=== PATIENT | female | born 1985 | race Caucasian/White ===

== ENCOUNTER 2016-11-01 18:29 | Inpatient (IN) | payer OTHER ==
--- NOTE | ~2016-11-01 | PN ---
Unit #: [id number] #: [id number] Patient: MARISELA GOMEZ [id number] [facility] [address] [place] [address] [id number] MR#: [id number] NAME: MARISELA GOMEZ ROOM: P176 Age: 31 Sex: F Admission Date: 11/01/2016 : 1985 Attending Physician: Drew Roberts M.D. Admitting Physician: Drew Roberts M.D. Primary Care Physician: Mellisa Riddle PROGRESS NOTES DATE 11/06/2016 DISCUSSION Ms. Gomez is a 31-year-old white female who was seen today and chart was reviewed and case was discussed with the staff. She has been anxious, withdrawn and rather seclusive to herself. Meanwhile, she has been cooperative with treatment recommendations and appears to be doing better than yesterday and has been complaining of anxiety and depression and (1) to be adjusted. MENTAL STATUS EXAMINATION Young white female who was casually dressed with fair personal hygiene, appears to be in no acute distress or discomfort. She was awake and alert on interaction with intact orientation. Her mood was anxious with congruent affect. She denies any suicidal or homicidal ideations. Also, denies any auditory or visual hallucinations. Her insight and judgement remains slightly impaired. TREATMENT PLAN 1. We will increase her Effexor XR to 225 mg in the morning. We will monitor her response and make further adjustments as needed. 2. We will continue to follow up. Dictated by... Mellisa Zarco/merry TD: 11/07/2016 04:23 JOB #: [id number] Unit #: [id number] #: [id number] Patient: MARISELA GOMEZ PROGRESS NOTES Page 1 of 1 X Drew Roberts MD PROGRESS NOTE
--- NOTE | ~2016-11-01 | PN ---
Unit #: [id number] #: [id number] Patient: MARISELA GOMEZ [id number] [facility] [address] [place] [address] [id number] I MR#: [id number] NAME: MARISELA GOMEZ ROOM: P176 Age: 31 Sex: F Admission Date: 11/01/2016 : 1985 Attending Physician: Drew Roberts M.D. Admitting Physician: Drew Roberts M.D. Primary Care Physician: Mellisa Riddle PROGRESS NOTES DATE 11/05/2016 DISCUSSION Ms. Gomez is a 31-year-old white female with substance abuse and mood disorder who was seen today and chart was reviewed and case was discussed with the staff. She has been showing very poor insight into her situation as she is still detoxing and social media intern has set up a transfer for her to go to half-way chemical dependence rehab program on Monday and she wants to sign out over the weekend and was told that will not feel comfortable and has been encouraged to finish her detox so that she can transition to the rehab level of care. MENTAL STATUS EXAMINATION Young white female who was casually dressed with fair personal hygiene, appears to be in no acute distress or discomfort. She was awake and alert on interaction with intact orientation. Her mood was anxious with congruent affect. She denies any suicidal or homicidal ideations. Her insight and judgement remains slightly impaired. TREATMENT PLAN 1. We will continue her on her current medications and treatment protocol. We will monitor her response and make further adjustments as needed. 2. We will continue to follow up. Dictated by... Mellisa Zarco/merry TD: 11/07/2016 00:16 JOB #: [id number] Unit #: [id number] #: [id number] Patient: MARISELA GOMEZ PROGRESS NOTES Page 1 of 1 X Drew Roberts MD PROGRESS NOTE
--- NOTE | ~2016-11-01 | PA ---
Unit #: [id number] #: [id number] Patient: MARISELA GOMEZ [id number] [facility] [address] [place] [address] [id number] I MR#: [id number] NAME: MARISELA GOMEZ ROOM: P176 Age: 31 Sex: F Admission Date: 11/01/2016 : 1985 Date of Assessment: 11/02/2016 Attending Physician: Drew Roberts M.D. Admitting Physician: Drew Roberts M.D. Primary Care Physician: Prince Farfan M.D. PSYCHIATRIC ASSESSMENT DATE OF SERVICE 11/02/2016. IDENTIFYING DATA Ms. Gomez is a 31-year-old single white female, who is a resident of [place], [place], and is known to us from previous encounter and was self-referred to the hospital on a voluntary basis. CHIEF COMPLAINT "This is a worst detox I've ever had so far." HISTORY OF PRESENT ILLNESS Ms. Gomez is a 31-year-old white female with history of substance abuse and mood disorder, who was brought to the hospital after she stated that she is detoxing and having taken number of substances and reports that she is detoxing off heroin and Xanax and that she came home with all kind of scratches and she had blood in her stool and she woke up Easter Monday and did not know where she was and stated that her mother and glrlih-ht-aem missed her for about 12 to 13 hours and reports that she is unable to work due to her drug use and her history of bipolar disorder and has graduated high school and her [employer] license was lost due to an assault charge and currently reports increasing depression, anxiety, irritability, restlessness, feelings of hopelessness and helplessness, and suicidal ideations, but denies any intent or plan. SUBSTANCE ABUSE HISTORY The patient reports extensive history of substance abuse and dependence including alcohol, cannabis, cocaine, opioids, and amphetamines, and benzodiazepines, and currently she reports that she has been using opioids and cocaine on regular basis. PAST PSYCHIATRIC HISTORY The patient has had [facility] and has been to other facilities as well and has been diagnosed and treated for bipolar disorder and currently has been noncompliant with medications on outpatient treatment and has been decompensating. PAST MEDICAL HISTORY Significant for hypertension. ALLERGIES Haldol and Nicoderm. Unit #: [id number] #: [id number] Patient: MARISELA GOMEZ PERSONAL AND SOCIAL HISTORY A 31-year-old white female, who reports that she is single, unemployed, and lives at home with her mother and gzzyav-vy-eas and has fairly decent social support system. MENTAL STATUS EXAMINATION Young white female who was casually dressed with fair personal hygiene, appears to be in no acute distress or discomfort. She was awake and alert on interaction with intact orientation to time, place, and person. Her mood was anxious and depressed with a congruent affect. Her speech was slow and goal directed. She denies any current suicidal or homicidal ideations, and also denies any auditory or visual hallucinations. Her insight and judgment remain significantly impaired. DIAGNOSTIC IMPRESSION Psychiatric: Opioid dependence, moderate and acute withdrawals; cocaine dependence, moderate; methamphetamine abuse, moderate; bipolar disorder, most recent episode depressed, recurrent, moderate, without psychotic features. Medical: None. Stressors: Moderate psychosocial stressors. TREATMENT PLAN 1. The patient has presented with history of substance abuse and mood disorder, and has been decompensating and will need inpatient hospitalization for detoxification, safety, and stabilization. We will start her back on her home medications. We will adjust the medications and monitor response. 2. Supportive therapy was provided to the patient. 3. Safe, structured, and nourishing environment will be reported. ESTIMATED LENGTH OF STAY 4 to 5 days. ABILITY TO HELP SELF Limited. WILLINGNESS TO HELP SELF The patient appears to be willing to help self. STRENGTHS 1. Communicative. 2. Cooperative. PROBLEMS 1. Chronic dysphoric symptoms. 2. Chronic chemical dependency. 3. Poor social support system. DISCHARGE CRITERIA This will be contingent upon the patient's ability to go through detox without having any significant withdrawal symptoms and her ability to stay safe to herself, particularly after discharge from the hospital. Dictated by... Drew Roberts M.D. Unit #: [id number] #: [id number] Patient: MARISELA GOMEZ IAA/modl TD: 11/02/2016 06:50 JOB #: [id number] PSYCHIATRIC ASSESSMENT Page 1 of 1 X Drew Roberts MD PSYCHIATRIC ASSESSMENT
--- NOTE | ~2016-11-01 | DS ---
Unit #: [id number] #: [id number] Patient: MARISELA GOMEZ [id number] [facility] [address] [place] [address] [id number] MR#: [id number] NAME: MARISELA GOMEZ ROOM: P176 Age: 31 Sex: F Admission Date: 11/01/2016 : 1985 Discharge Date: Attending Physician: Drew Roberts M.D. Primary Care Physician: Prince Farfan M.D. DISCHARGE SUMMARY IDENTIFYING DATA Ms. Gomez is a 31-year-old single white female, who is a resident of [place], [place], and is known to us from previous encounter, and was self-referred to the hospital on a voluntary basis. DISCHARGE DIAGNOSES Psychiatric: Opioid dependence, moderate and acute withdrawals; cocaine dependence, moderate; methamphetamine abuse, moderate; bipolar disorder, most recent episode depressed, recurrent, moderate, without psychotic features. Medical: None. Stressors: Moderate psychosocial stressors. HISTORY OF PRESENT ILLNESS Please see initial psychiatric evaluation for details. PAST PSYCHIATRIC HISTORY Please see initial psychiatric evaluation for details. PAST MEDICAL HISTORY Please see initial psychiatric evaluation for details. HOSPITAL COURSE The patient was admitted to the adult chemical dependency and psychiatric unit at [facility] and was oriented to the hospital environment. Routine p.r.n. medications were initiated, and she was started back on her home medications including her lithium; however, she stated that she does not feel the medication has been helping and wanted to be change to different mood stabilizer and lithium was switched to Geodon with good efficacy and tolerability. Meanwhile, Effexor was also increased and she was seen to be doing good and was able to show a decent therapeutic response and was able to come out of the detox without any complications and was wanting to go home and was willing to continue treatment on an outpatient basis and as such, it was decided that she will be discharged home and will continue treatment on an outpatient basis. DISCHARGE MEDICATIONS Effexor XR 225 mg in the morning for depression and Geodon 60 mg in the morning for depression. DISCHARGE CONDITION Stable. PROGNOSIS Fair. Unit #: [id number] #: [id number] Patient: MARISELA GOMEZ Dictated by... Drew Roberts M.D. IAA/modl TD: 11/07/2016 06:47 JOB #: [id number] DISCHARGE SUMMARY Page 1 of 1 X Drew Roberts MD DISCHARGE SUMMARY
--- NOTE | ~2016-11-01 | PN ---
Unit #: [id number] #: [id number] Patient: MARISELA GOMEZ [id number] [facility] [address] [place] [address] [id number] MR#: [id number] NAME: MARISELA GOMEZ ROOM: P176 Age: 31 Sex: F Admission Date: 11/01/2016 : 1985 Attending Physician: Drew Roberts M.D. Admitting Physician: Drew Roberts M.D. Primary Care Physician: Mellisa Riddle PROGRESS NOTES DATE 11/02/2016 DISCUSSION Ms. Gomez is a 31-year-old white female with substance abuse and mood disorder who was seen today and chart was reviewed and case was discussed with the staff. She has been anxious, withdrawn and rather seclusive to herself. Meanwhile, she has been cooperative with treatment recommendations as she has been taking the medications and tolerating them fairly well with no reported side effects. MENTAL STATUS EXAMINATION Young white female who was casually dressed with fair personal hygiene, appears to be in no acute distress or discomfort. She was awake and alert on interaction with intact orientation. Her mood was anxious and depressed with congruent affect. Her speech was slow and goal-directed. The patient denies any suicidal or homicidal ideations. Her insight and judgement remains slightly impaired. TREATMENT PLAN 1. We will continue her on her current medications and treatment protocol. We will monitor her response to the medication and make further adjustments as needed. 2. We will continue to follow up. Dictated by... Mellisa Zarco/merry TD: 11/03/2016 04:29 JOB #: [id number] Unit #: [id number] #: [id number] Patient: MARISELA GOMEZ PROGRESS NOTES Page 1 of 1 X Drew Roberts MD X PROGRESS NOTE
--- NOTE | ~2016-11-01 | CO ---
Unit #: [id number] #: [id number] Patient: MARISELA SHARMA [id number] [facility] [address] [place] [address] [id number] MR#: [id number] NAME: MARISELA SHARMA ROOM: P176 Age: 31 Sex: F Admission Date: 11/01/2016 : 1985 Attending Physician: Drew Roberts M.D. Primary Care Physician: Prince Farfan M.D. Consultation Date: 11/06/2016 CONSULTATION REPORT ORDERING PROVIDER Dr. Roberts. REASON FOR CONSULT Back pain, increased urination, and ear pain. SUBJECTIVE The patient reports that she has had some lower back pain and increased urinary frequency for about a day. She reports that it is painful to urinate. She has a history of both urinary tract infections and kidney stones. She also reports that she has an infection in her left ear. She went to urgent care prior to [facility] and was given ear drops for that. She now reports pain is also in her right ear. She is wanting to put the drops in both ears. Finally, she has a rash. She presented to urgent care with this rash as well and was given prednisone. She filled the prescription, but never took that and has not been getting it and is being admitted to the hospital. OBJECTIVE The patient has a very mild papular rash on her bilateral arms. Otoscope was not immediately available to look at the patient's ears; however, she had cotton ball in her left ear. She did have some low back pain with CVA tenderness. DIAGNOSTIC STUDIES LABORATORY RESULTS: Urinalysis from admission on the was unremarkable, however, symptoms started after that. PLAN Plan is to get a new urinalysis with culture and sensitivity. Start the patient on Augmentin. She can use her ear drops in both ears and we will do a hydrocortisone cream for her rash. Dictated by... Gail Albarran A.P.R.N. for Mellisa Joya/kayden TD: 11/06/2016 19:49 JOB #: [id number] Unit #: [id number] #: [id number] Patient: MARISELA SHARMA CONSULTATION REPORT Page 1 of 1 X GAIL ALBARRAN APRN CONSULTATION REPORT
--- NOTE | ~2016-11-01 | HP ---
Unit #: [id number] #: [id number] Patient: MARISELA SHARMA [id number] [place] [address] [id number] I MR#: [id number] NAME: MARISELA SHARMA ROOM: P176 Age: 31 Sex: F Admission Date: 11/01/2016 : 1985 Attending Physician: Drew Roberts M.D. Admitting Physician: Drew Roberts M.D. Primary Care Physician: Prince Farfan M.D. HISTORY AND PHYSICAL HISTORY OF PRESENT ILLNESS Marisela is a 31 year old admitted to [facility] because of her continued poly-illicit substance abuse. PAST MEDICAL HISTORY 1. Long history of illicit substance abuse to include heroin and benzodiazepines. 2. History of genital herpes. 3. GERD. 4. Asthma. PAST SURGICAL HISTORY 1. Pelvic lap x2. 2. T and A. 3. x1. 4. Hysterectomy. ALLERGIES Haldol, Zofran, Seroquel, nicotine patch, trazodone. FAMILY HISTORY Medically noncontributory. REVIEW OF SYSTEMS CONSTITUTIONAL: No fever or chills. HEENT: Denies any sore throat, ear pain or runny nose. CARDIOVASCULAR: Denies chest pain, irregular heart rhythm or palpitations. CHEST: Denies shortness of breath or cough. No hemoptysis. GASTROINTESTINAL: Denies nausea, vomiting, diarrhea or chronic constipation. ENDOCRINE: Denies history of increased thirst or urination. No recent significant weight loss or gain. GENITOURINARY: Denies dysuria, frequency, or hematuria. SKIN: Denies any rashes. HEMATOLOGIC: Denies history of increased bleeding or bruising. MUSCULOSKELETAL: Denies any hot, swollen joints. No generalized muscle pain. NEUROLOGIC: Denies problems with vision or speech. No frequent, severe headaches. No numbness, tingling or weakness in any extremities. Denies loss of bladder or bowel control. CURRENT MEDICATIONS 1. Detox protocol. Unit #: [id number] #: [id number] Patient: MARISELA SHARMA 2. Effexor XR 150 mg daily. 3. Trazodone 150 mg q.h.s. 4. [place] 300 mg q.h.s. 5. Ibuprofen 800 mg t.i.d. 6. Desyrel 100 mg q.h.s. p.r.n. PHYSICAL EXAMINATION GENERAL: Alert, morbidly obese, in no apparent distress. VITAL SIGNS: Blood pressure 120/84, heart rate 80, respirations 16, temperature 98.6. WEIGHT: 228. HEIGHT: 5 feet 4 inches. SKIN: Warm and dry without rash or lesion. HEENT: Normocephalic. TMs not viewed. Oral and nasal passages clear. Conjunctivae clear. PERRLA. EOMs intact. NECK: Supple without lymphadenopathy or thyromegaly. HEART: Regular rate and rhythm without murmur. LUNGS: Clear. ABDOMEN: Soft, nontender. : Not done. EXTREMITIES: No evidence of cyanosis, clubbing or edema. Moves all without focal deficit. NEUROLOGICAL: Grossly within normal limits. Cranial Nerves: II: Visual zhang are intact. III, IV AND : Extraocular movements are intact. Pupils are equal, round and reactive to light. V: Facial sensation is grossly normal. VII: Facial movements and expression are normal. VIII: Auditory acuity grossly intact. IX, X: Uvula is midline. Phonation is normal. XI: Patient shrugs shoulders and turns head normally. XII: Tongue protrudes in the midline. Sensory and Motor Function: Sensory and motor sensation is grossly normal. Motor: moves all extremities well. Coordination: Gait is normal. Deep Tendon Reflexes: Intact. IMPRESSION Psychiatric admission. RECOMMENDATIONS PSYCHIATRIC: Per psychiatrist. MEDICAL: See no contraindications to participate in facility's activities. MEDICAL PROGNOSIS Good. MEDICAL CONDITION Stable. Dictated by... Carmen Trammell P.A.-C. for Mellisa Joya/robb TD: 11/02/2016 18:32 Unit #: [id number] #: [id number] Patient: MARISELA SHARMA JOB #: [id number] HISTORY AND PHYSICAL Page 1 of 1 X Carmen Trammell HISTORY AND PHYSICAL
--- NOTE | ~2016-11-01 | PN ---
Unit #: [id number] #: [id number] Patient: MARISELA GOMEZ [id number] [facility] [address] [place] [address] [id number] MR#: [id number] NAME: MARISELA GOMEZ ROOM: P176 Age: 31 Sex: F Admission Date: 11/01/2016 : 1985 Attending Physician: Drew Roberts M.D. Admitting Physician: Drew Roberts M.D. Primary Care Physician: Mellisa Riddle PROGRESS NOTES DATE 11/03/2016 DISCUSSION Ms. Gomez is a 31-year-old white female who was seen today and chart was reviewed and case was discussed with the staff. She has been anxious, withdrawn though has not shown any agitation, irritability or behavioral problems and has been cooperative with treatment recommendations as she has been taking medications and tolerating them fairly well with no reported side effects. MENTAL STATUS EXAMINATION Young white female who was casually dressed with fair personal hygiene and appears to be in no acute distress or discomfort. She was awake and alert on interaction with intact orientation. Her mood was anxious and depressed with congruent affect. She denies any suicidal or homicidal ideations. Her insight and judgement remains slightly impaired. TREATMENT PLAN 1. Will continue on current medications and treatment protocol. Will monitor her response to the medications and make further adjustments as needed. 2. Will continue to follow up. Dictated by... Mellisa Zarco/robb TD: 11/03/2016 15:49 JOB #: [id number] Unit #: [id number] #: [id number] Patient: MARISELA GOMEZ PROGRESS NOTES Page 1 of 1 X Drew Roberts MD X PROGRESS NOTE
--- NOTE | ~2016-11-01 | PN ---
Unit #: [id number] #: [id number] Patient: MARISELA GOMEZ [id number] [facility] [address] [place] [address] [id number] MR#: [id number] NAME: MARISELA GOMEZ ROOM: P176 Age: 31 Sex: F Admission Date: 11/01/2016 : 1985 Attending Physician: Drew Roberts M.D. Admitting Physician: Drew Roberts M.D. Primary Care Physician: Mellisa Riddle PROGRESS NOTES DATE OF SERVICE: 11/04/2016 SUBJECTIVE Ms. Gomez is a 31-year-old white female, who was seen today and chart was reviewed and the case was discussed with the staff. She has been anxious, withdrawn, and reports not feeling good and stated that she was binging on alcohol as well in addition to being on opioids and therefore has been having complicated withdrawal and reports her whole body is hurting and she has not been able to feel rested and comfortable. She wants me to take her off lithium and stating that it has not been helping her and she would like to be rather on different mood stabilizer. MENTAL STATUS EXAMINATION Young white female, who was casually dressed with fair personal hygiene, appears to be in no acute distress or discomfort. She was awake and alert on interaction with intact orientation. Her mood was anxious and depressed with a congruent affect. Her speech was slow and goal directed. She denies any suicidal or homicidal ideations. Her insight and judgment remain slightly impaired. TREATMENT PLAN 1. We will continue on her current medications and treatment protocol. We will monitor her response to medications and make further adjustments as needed. 2. We will continue to follow up. Dictated by... Drew Roberts M.D. IAA/modl TD: 11/04/2016 07:45 JOB #: [id number] Unit #: [id number] #: [id number] Patient: MARISELA GOMEZ PROGRESS NOTES Page 1 of 1 X Drew Roberts A MD X PROGRESS NOTE
[2016-11-02 09:59] LABS: URINE APPEARANCE CLEAR; URINE BILIRUBIN NEG (NEG); URINE BLOOD NEG (NEG); URINE COLOR YELLOW; URINE GLUCOSE NEG (NEG); URINE KETONE NEG (NEG); URINE LEUKOCYTE ESTERASE TRACE (NEG); URINE NITRATE NEG (NEG); URINE PH 5.5 (5-8); URINE PROTEIN NEG (NEG); URINE SPECIFIC GRAVITY 1.013 (1.003-1.035); URINE UROBILINOGEN 0.2 MG/DL (NEG)
[2016-11-02 10:02] LABS: URINE BACTERIA AUWI 1+ (NEGATIVE); URINE SQUAMOUS EPITHELIAL CELL OCC /[HPF]
[2016-11-02 10:15] LABS: URBCS1 AUWI NEG /[HPF] (0-2); UWBCS1 AUWI 0-2 (0-5)
[2016-11-02 10:37] LABS: AMPHETAMINE POS (NEG); BARBITURATES NEG (NEG); BENZODIAZEPINES POS (NEG); COCAINE POS (NEG); MARIJUANA POS (NEG); OPIATES NEG (NEG); TRICYCLIC ANTIDEPRESSANTS POS (NEG); U METHADONE NEG (NEG)
[2016-11-02 12:37] LABS: BASOPHIL% 0.7 % (0-2.5); EOSINOPHIL# 0.2 X10e3 (0-0.7); EOSINOPHIL% 3.2 % (0.0-7.0); HEMATOCRIT 39.3 % (35.0-45.0); LYMPHOCYTE# 3.3 X10e3 (1.0-3.5); LYMPHOCYTE% 64.8 % (17.0-45.0); MEAN CELL VOLUME 90.1 FL (83-96); MEAN CORPUSCULAR HEMOGLOBIN 29.8 PG (28-34); MEAN PLATELET VOLUME 8.5 FL (6.5-11.5); MONOCYTE# 0.4 X10e3 (0-1.0); MONOCYTE% 7.3 % (3.0-12.0); NEUTROPHIL# 1.2 X10e3 (1.5-7.1); PLATELET COUNT 270 X10e3 (140-420); RED BLOOD COUNT 4.36 X10e (3.90-5.30); RED CELL DISTRIBUTION WIDTH 13.9 % (11.0-15.5); WHITE BLOOD COUNT 5.1 X10e3 (4.0-10.5)
[2016-11-02 12:46] LABS: DIFF IND YES
[2016-11-02 13:08] LABS: PLATELET ESTIMATE NORMAL (NORMAL); RBC NORMAL YES
[2016-11-02 13:10] LABS: ALBUMIN SERUM 3.4 g/dL (3.5-5.0); BILIRUBIN,TOTAL 0.7 mg/dL (0.2-2.0); CALCIUM SERUM 9.1 mg/dL (8.4-10.2); GLOM FILT RATE Estimated 76.1 mL/min (>60); POTASSIUM 3.7 mmol/L (3.5-5.1)
[2016-11-07 12:40] LABS: URINE APPEARANCE CLOUDY; URINE BILIRUBIN NEG (NEG); URINE BLOOD NEG (NEG); URINE COLOR YELLOW; URINE GLUCOSE NEG (NEG); URINE KETONE NEG (NEG); URINE LEUKOCYTE ESTERASE NEG (NEG); URINE NITRATE NEG (NEG); URINE PROTEIN NEG (NEG); URINE SPECIFIC GRAVITY 1.007 (1.003-1.035); URINE UROBILINOGEN 0.2 MG/DL (NEG)
[2016-11-07 12:49] LABS: CULTURE INDICATED? NO
== END 2016-11-07 08:45 | DRG 897 ==
LOC: P1E 18:29
PROVIDERS: Psychiatry & Neurology Psychiatry
PROC: HZ2ZZZZ Detoxification Services for Substance Abuse Treatment (ICD-10-PCS; principal; 2016-11-01)
DX: F11.23 Opioid dependence with withdrawal (principal); F14.20 Cocaine dependence, uncomplicated; F31.32 Bipolar disorder, current episode depressed, moderate; F15.10 Other stimulant abuse, uncomplicated; K21.9 Gastro-esophageal reflux disease without esophagitis; J45.909 Unspecified asthma, uncomplicated; Z90.710 Acquired absence of both cervix and uterus; Z88.8 Allergy status to other drugs, medicaments and biological substances; H92.03 Otalgia, bilateral; M54.9 Dorsalgia, unspecified; R35.0 Frequency of micturition
CPT/HCPCS: 80053; 80178; 80307; 81003; 84703; 85025; 86592

== ENCOUNTER 2017-02-23 14:47 | Inpatient (IN) | payer OTHER ==
[~2017-02-23] VITALS: Ht 162.6 cm; Wt 90.7 kg
--- NOTE | ~2017-02-23 | PN ---
Unit #: [id number] #: [id number] Patient: MARISELA GOMEZ [id number] [facility] [address] [place] [address] [id number] MR#: [id number] NAME: MARISELA GOMEZ ROOM: P173 Age: 31 Sex: F Admission Date: 02/23/2017 : 1985 Attending Physician: Drew Roberts M.D. Admitting Physician: Drew Roberts M.D. Primary Care Physician: Mellisa Riddle PROGRESS NOTES DATE 02/26/2017 DISCUSSION Ms. Gomez is a 31-year-old white female who was seen today and chart was reviewed and case was discussed with the staff. She has been anxious, withdrawn and rather seclusive to herself. Meanwhile, she has been cooperative with treatment recommendations as she has been taking the medications and tolerating them fairly well with no reported side effects. MENTAL STATUS EXAMINATION Young white female who was casually dressed with fair personal hygiene, appears to be in no acute distress or discomfort. She was awake and alert on interaction with intact orientation. Her mood was anxious with congruent affect. Her speech was slow and goal-directed. She denies any suicidal or homicidal ideations. Her insight and judgement remains slightly impaired. TREATMENT PLAN 1. We will continue her on her current medications and treatment protocol. We will adjust her medication and monitor response. 2. Supportive therapy was provided to the patient. 3. We will continue to follow up. Dictated by... Mellisa Zarco/merry TD: 02/27/2017 04:05 JOB #: [id number] Unit #: [id number] #: [id number] Patient: MARISELA GOMEZ PROGRESS NOTES Page 1 of 1 X Drew Roberts MD X PROGRESS NOTE
--- NOTE | ~2017-02-23 | DS ---
Unit #: [id number] #: [id number] Patient: MARISELA GOMEZ [id number] [facility] [place] [address] [id number] I MR#: [id number] NAME: MARISELA GOMEZ ROOM: P173 Age: 31 Sex: F Admission Date: 02/23/2017 : 1985 Discharge Date: 02/28/2017 Attending Physician: Drew Roberts M.D. Primary Care Physician: Prince Farfan M.D. DISCHARGE SUMMARY IDENTIFYING DATA Ms. Gomez is a 31-year-old single white female, resident of [place], [place], as is well known to us from previous multiple encounters, self-referred to the hospital on a voluntary basis. HISTORY OF PRESENT ILLNESS Please see initial psychiatric evaluation for details. PAST PSYCHIATRIC HISTORY Please see initial psychiatric evaluation for details. PAST MEDICAL HISTORY Please see initial psychiatric evaluation for details. HOSPITAL COURSE The patient [facility] and was oriented to the hospital environment. Routine p.r.n. medications were initiated, and she was started back on her home medications, and detox protocol was initiated and she was closely monitored. The patient was taking the medications regularly and was tolerating them fairly well and was able to come out of the detox without any complications and was willing to continue her treatment on outpatient basis and as such it was decided that she will be discharged home and will continue treatment on an outpatient basis. The patient was wanting to go to prison rehab level of care and social worker school was able to get her accepted at [facility] and as such it was decided that she will be transferred to that facility. DISCHARGE DIAGNOSES Psychiatric: [place] I Opiate dependence moderate in acute withdrawal. Benzodiazepine dependence, moderate, in acute withdrawal. Bipolar disorder, most recent episode depressed, frequent, recurrent, without psychotic features. [place] II [place] III Hypertension. Asthma. [place] IV Mild Psychosocial stressors. [place] V DISCHARGE MEDICATIONS 1. Geodon 120 mg in the evening for bipolar Unit #: [id number] #: [id number] Patient: MARISELA GOMEZ 2. Effexor XR 150 mg twice a day for depression CONDITION AT DISCHARGE Stable. PROGNOSIS Fair. Dictated by... Mellisa Zarco/obey TD: 03/01/2017 08:42 JOB #: [id number] DISCHARGE SUMMARY Page 1 of 1 X Drew Roberts MD DISCHARGE SUMMARY
--- NOTE | ~2017-02-23 | PA ---
Unit #: [id number] #: [id number] Patient: MARISELA SHARMA [id number] [facility] [address] [place] [address] [id number] MR#: [id number] NAME: MARISELA SHARMA ROOM: P173 Age: 31 Sex: F Admission Date: 02/23/2017 : 1985 Date of Assessment: Attending Physician: Drew Roberts M.D. Admitting Physician: Drew Roberts M.D. Primary Care Physician: Prince Farfan M.D. PSYCHIATRIC ASSESSMENT DATE OF SERVICE 02/24/2017. IDENTIFYING DATA Ms. Soria is a 31-year-old single white female, who is a resident of [place], [place], and is very well known to me from previous encounter and was self-referred to the hospital on a voluntary basis. CHIEF COMPLAINT "I'm seeking treatment for my drug abuse." HISTORY OF PRESENT ILLNESS Ms. Soria is a 31-year-old white female with history of substance abuse and mood disorder, who was self-referred to the hospital reporting that she was recommended to seek treatment following arrest for substance abuse and she has been using Xanax and Percocet and that she has been using benzos for a while, even when she was incarcerated and she has had several seizures from withdrawals as recent as two days ago, and reports that she has noticed increasing depression after she lost custody of her son and does endorse increasing depression, anxiety, irritability, restlessness, feelings of hopelessness and helplessness, but denies any current suicidal ideations, intent, or plan. SUBSTANCE ABUSE HISTORY The patient reports extensive history of substance abuse and dependence including cannabis, cocaine, opioids, amphetamines, and benzodiazepines, and currently, opioids and benzodiazepines have been her drug of choice as she reports that she has been using a gram of IV heroin on a daily basis and has been using 5 to 6 Xanax on a daily basis and has been having withdrawal seizures. PAST PSYCHIATRIC HISTORY The patient has had a [facility] along with outpatient treatment. Review of the medical records indicate currently she is not active in any treatment program, is not seeing a psychiatrist, and is not taking any psychotropic medications. However, review of the medical records indicate that she has been diagnosed with bipolar disorder and supposed to be on Effexor and Geodon. PAST MEDICAL HISTORY Hypertension and asthma. Unit #: [id number] #: [id number] Patient: MARISELA SHARMA. PERSONAL AND SOCIAL HISTORY A 31-year-old white female, who reports that she is single, unemployed, and has been living at home with her mother and cousin and has fairly decent social support system. MENTAL STATUS EXAMINATION Young white female, who was casually dressed with a fair personal hygiene, appears to be in no acute distress or discomfort. She was awake and alert on interaction with intact orientation. Her mood was anxious and depressed with a congruent affect. Her speech was slow and restricted in content. Her thought processes were disorganized with some looseness of associations. She denies any suicidal or homicidal ideations and also denies any auditory or visual hallucinations. Her insight and judgment remain significantly impaired. DIAGNOSTIC IMPRESSION Psychiatric: Opioid dependence, moderate, in acute withdrawals; benzodiazepine dependence, moderate, in acute withdrawals; bipolar disorder, most recent episode depressed, recurrent, moderate, without psychotic features. Medical: Hypertension and asthma. Stressors: Moderate psychosocial stressors. TREATMENT PLAN 1. The patient has presented with a history of substance abuse and mood disorder and has been decompensating and will need inpatient hospitalization for detoxification, safety, and stabilization. We will start her back on her home medications and we will adjust the medications and monitor response. 2. Supportive therapy was provided to the patient. 3. Safe, structured, and nourishing environment will be provided. ESTIMATED LENGTH OF STAY 5 to 7 days. ABILITY TO HELP SELF Limited. WILLINGNESS TO HELP SELF The patient appears to be willing to help self. STRENGTHS 1. Communicative. 2. Cooperative. PROBLEMS 1. Chronic dysphoric symptoms. 2. Poor social support system. DISCHARGE CRITERIA This will be contingent upon the patient's ability to show resolution of her depression and anxiety as well as her ability to stay safe to herself, particularly after discharge from the hospital. Dictated by... Unit #: [id number] #: [id number] Patient: MARISELA SHARMA Mellisa Zarco/kayden TD: 02/24/2017 16:34 JOB #: [id number] PSYCHIATRIC ASSESSMENT Page 1 of 1 X Drew Roberts MD PSYCHIATRIC ASSESSMENT
--- NOTE | ~2017-02-23 | PN ---
Unit #: [id number] #: [id number] Patient: MARISELA GOMEZ [id number] [facility] [address] [place] [address] [id number] MR#: [id number] NAME: MARISELA GOMEZ ROOM: P173 Age: 31 Sex: F Admission Date: 02/23/2017 : 1985 Attending Physician: Drew Roberts M.D. Admitting Physician: Drew Roberts M.D. Primary Care Physician: Mellisa Riddle PROGRESS NOTES DATE 02/25/2017 DISCUSSION Ms. Gomez is a 31-year-old white female who was seen today and chart was reviewed and case was discussed with the staff. She has been anxious, withdrawn and rather seclusive to herself. Meanwhile, she has been cooperative with treatment recommendations and has been taking medications and tolerating them fairly well with no reported side effects. MENTAL STATUS EXAMINATION Young white female who was casually dressed with fair personal hygiene and appears to be in no acute distress or discomfort. She was awake and alert with intact orientation. Her mood was anxious with congruent affect. She denies any suicidal or homicidal ideation. Her insight and judgement remains slightly impaired. TREATMENT PLAN 1. Will continue her on current medications and treatment protocol. Will monitor her response to the medications and make further adjustments as needed. 2. Will continue to follow up. Dictated by... Drew Roberts M.D. IAA/robb TD: 02/25/2017 17:49 JOB #: [id number] Unit #: [id number] #: [id number] Patient: MARISELA GOMEZ PROGRESS NOTES Page 1 of 1 X Drew Roberts MD X PROGRESS NOTE
--- NOTE | ~2017-02-23 | PN ---
Unit #: [id number] #: [id number] Patient: MARISELA GOMEZ [id number] [facility] [address] [place] [address] [id number] MR#: [id number] NAME: MARISELA GOMEZ ROOM: P173 Age: 31 Sex: F Admission Date: 02/23/2017 : 1985 Attending Physician: Drew Roberts M.D. Admitting Physician: Drew Roberts M.D. Primary Care Physician: Mellisa Riddle PROGRESS NOTES DATE 02/27/2017 DISCUSSION Ms. Gomez is a 31-year-old white female who was seen today and chart was reviewed and case was discussed with the staff. She has been anxious, withdrawn and rather seclusive to herself. Meanwhile, she has been cooperative with treatment recommendations as she has been taking the medications and tolerating them fairly well with no reported side effects. MENTAL STATUS EXAMINATION Young white female who was casually dressed with fair personal hygiene, appears to be in no acute distress or discomfort. She was awake and alert on interaction with intact orientation. Her mood was anxious with congruent affect. She denies any suicidal or homicidal ideations. Her insight and judgement remains slightly impaired. TREATMENT PLAN 1. We will continue her on her current medications and treatment protocol. We will monitor her response to the medication and make further adjustments as needed. 2. We will continue to follow up. Dictated by... Mellisa Zarco/merry TD: 02/28/2017 02:53 JOB #: [id number] Unit #: [id number] #: [id number] Patient: MARISELA GOMEZ PROGRESS NOTES Page 1 of 1 X Drew Roberts MD X PROGRESS NOTE
--- NOTE | ~2017-02-23 | HP ---
Unit #: [id number] #: [id number] Patient: MARISELA SAHRMA [id number] [place] [address] [id number] MR#: [id number] NAME: MARISELA SHARMA ROOM: P173 Age: 31 Sex: F Admission Date: 02/23/2017 : 1985 Attending Physician: Drew Roberts M.D. Admitting Physician: Drew Roberts M.D. Primary Care Physician: Prince Farfan M.D. HISTORY AND PHYSICAL HISTORY OF PRESENT ILLNESS Marisela is a 31 year old admitted to [facility] because of her continued poly-illicit substance abuse. She has had numerous admissions to this facility. PAST MEDICAL HISTORY 1. Long history of illicit substance abuse to include heroin and benzodiazepines. 2. History of genital herpes. 3. GERD. 4. Asthma. PAST SURGICAL HISTORY 1. Pelvic lap x2. 2. T and A. 3. x1. 4. Hysterectomy. ALLERGIES Haldol, Zofran, Seroquel, nicotine patch, trazodone. FAMILY HISTORY Medically noncontributory. REVIEW OF SYSTEMS CONSTITUTIONAL: No fever or chills. HEENT: Denies any sore throat, ear pain or runny nose. CARDIOVASCULAR: Denies chest pain, irregular heart rhythm or palpitations. CHEST: Denies shortness of breath or cough. No hemoptysis. GASTROINTESTINAL: Denies nausea, vomiting, diarrhea or chronic constipation. ENDOCRINE: Denies history of increased thirst or urination. No recent significant weight loss or gain. GENITOURINARY: Denies dysuria, frequency, or hematuria. SKIN: Denies any rashes. HEMATOLOGIC: Denies history of increased bleeding or bruising. MUSCULOSKELETAL: Denies any hot, swollen joints. No generalized muscle pain. NEUROLOGIC: Denies problems with vision or speech. No frequent, severe headaches. No numbness, tingling or weakness in any extremities. Denies loss of bladder or bowel control. CURRENT MEDICATIONS Unit #: [id number] #: [id number] Patient: MARISELA SHARMA 1. Detox protocol. 2. Geodon 120 mg q.p.m. 3. Neurontin 400 mg t.i.d. 4. Effexor XR 225 mg daily. PHYSICAL EXAMINATION GENERAL: Alert, obese, in no apparent distress. VITAL SIGNS: Blood pressure 128/86, heart rate 84, respirations 16, temperature 98.6. WEIGHT: 200. HEIGHT: 5 feet 4 inches. SKIN: Warm and dry without rash or lesion. HEENT: Normocephalic. TMs not viewed. Oral and nasal passages clear. Conjunctivae clear. PERRLA. EOMs intact. NECK: Supple without lymphadenopathy or thyromegaly. HEART: Regular rate and rhythm without murmur. LUNGS: Clear. ABDOMEN: Soft, nontender. : Not done. EXTREMITIES: No evidence of cyanosis, clubbing or edema. Moves all without focal deficit. NEUROLOGICAL: Grossly within normal limits. Cranial Nerves: II: Visual zhang are intact. III, IV AND : Extraocular movements are intact. Pupils are equal, round and reactive to light. V: Facial sensation is grossly normal. VII: Facial movements and expression are normal. VIII: Auditory acuity grossly intact. IX, X: Uvula is midline. Phonation is normal. XI: Patient shrugs shoulders and turns head normally. XII: Tongue protrudes in the midline. Sensory and Motor Function: Sensory and motor sensation is grossly normal. Motor: moves all extremities well. Coordination: Gait is normal. Deep Tendon Reflexes: Intact. IMPRESSION Psychiatric admission. RECOMMENDATIONS PSYCHIATRIC: Per psychiatrist. MEDICAL: See no contraindication to participate in facility's activities. MEDICAL PROGNOSIS Good. MEDICAL CONDITION Stable. Dictated by... Carmen Trammell P.A.-C. for Mellisa Joya/robb TD: 02/24/2017 19:01 JOB #: [id number] Unit #: [id number] #: [id number] Patient: MARISELA SHARMA HISTORY AND PHYSICAL Page 1 of 1 X Carmen Trammell HISTORY AND PHYSICAL
--- NOTE | ~2017-02-23 | CO ---
Unit #: [id number] #: [id number] Patient: MARISELA SHARMA [id number] [place] [address] [id number] I MR#: [id number] NAME: MARISELA SHARMA ROOM: P173 Age: 31 Sex: F Admission Date: 02/23/2017 : 1985 Attending Physician: Drew Roberts M.D. Primary Care Physician: Prince Farfan M.D. Consultation Date: 02/26/2017 CONSULTATION REPORT JOB NOTE: DICTATED FOR NOT DICTATED Ordering provider is Dr. Roberts. REASON FOR CONSULT Ear pain and flank pain. SUBJECTIVE The patient reports bilateral ear pain for several weeks. She also reports that she believes she might have an abscess tooth. She has had drainage and swelling and pain on the right side of the top of her mouth for about the same over the last time. She also reports flank pain and dysuria. This has been going on for several days. OBJECTIVE Otoscopic examination revealed left ear with foreign object. A small amount of cotton was removed from the left ear. A small piece remained that was unable to be removed. The tympanic membrane are non-bulging and nonerythematous; however, the right side of the top of her mouth showed a tooth abscess with greenish drainage and swelling. LABORATORY DATA Urinalysis has not been completed on this admission. Her vital signs are stable. ASSESSMENT 1. Tooth abscess. 2. Foreign body in the ear. 3. Flank pain. PLAN Plan is to get urinalysis. Antibiotics were started for the tooth pain and peroxide wash will be done for the left ear to try to remove that last piece of cotton. Dictated by... Narayan Vasquez/kayden TD: 02/27/2017 11:52 JOB #: [id number] Unit #: [id number] #: [id number] Patient: MARISELA SHARMA CONSULTATION REPORT Page 1 of 1 X AISLINN OCHOA APRN CONSULTATION REPORT
[2017-02-24 09:49] LABS: BASOPHIL% 0.8 % (0-2.5); EOSINOPHIL# 0.2 X10e3 (0-0.7); EOSINOPHIL% 3.8 % (0.0-7.0); HEMATOCRIT 40.3 % (35.0-45.0); HEMOGLOBIN 13.6 gm/dL (12.0-16.0); LYMPHOCYTE# 2.5 X10e3 (1.0-3.5); LYMPHOCYTE% 42.9 % (17.0-45.0); MEAN CELL VOLUME 87.5 FL (83-96); MEAN CORPUSCULAR HEMOGLOBIN 29.5 PG (28-34); MEAN CORPUSCULAR HGB CONC 33.7 g/dL (30-36); MONOCYTE# 0.5 X10e3 (0-1.0); MONOCYTE% 7.8 % (3.0-12.0); NEUTROPHIL# 2.6 X10e3 (1.5-7.1); NEUTROPHIL% 44.7 % (40-75); PLATELET COUNT 227 X10e3 (140-420); RED BLOOD COUNT 4.61 X10e (3.90-5.30); RED CELL DISTRIBUTION WIDTH 15.1 % (11.0-15.5); WHITE BLOOD COUNT 5.8 X10e3 (4.0-10.5)
[2017-02-24 09:59] LABS: DIFF IND NO
[2017-02-24 10:08] LABS: ALBUMIN SERUM 3.7 g/dL (3.5-5.0); BILIRUBIN,TOTAL 0.4 mg/dL (0.2-2.0); BUN/CREATININE RATIO 8.88; CALCIUM SERUM 9.4 mg/dL (8.4-10.2); CREATININE SERUM 0.9 mg/dL (0.6-1.4); GLOM FILT RATE Estimated 86.5 mL/min (>60); PROTEIN TOTAL SERUM 6.7 g/dL (6.0-8.3)
[2017-02-25 13:01] LABS: URINE APPEARANCE CLEAR; URINE BILIRUBIN NEG (NEG); URINE BLOOD NEG (NEG); URINE COLOR YELLOW; URINE GLUCOSE NEG (NEG); URINE KETONE NEG (NEG); URINE LEUKOCYTE ESTERASE NEG (NEG); URINE NITRATE NEG (NEG); URINE PROTEIN NEG (NEG); URINE SPECIFIC GRAVITY 1.012 (1.003-1.035); URINE UROBILINOGEN 0.2 MG/DL (NEG)
[2017-02-25 14:22] LABS: AMPHETAMINE NEG (NEG); BARBITURATES NEG (NEG); BENZODIAZEPINES POS (NEG); COCAINE NEG (NEG); MARIJUANA NEG (NEG); OPIATES NEG (NEG); TRICYCLIC ANTIDEPRESSANTS NEG (NEG); U METHADONE NEG (NEG)
[2017-02-27 09:47] LABS: URINE APPEARANCE CLEAR; URINE BILIRUBIN NEG (NEG); URINE BLOOD NEG (NEG); URINE COLOR YELLOW; URINE GLUCOSE NEG (NEG); URINE KETONE NEG (NEG); URINE LEUKOCYTE ESTERASE NEG (NEG); URINE NITRATE NEG (NEG); URINE PH 6.5 (5-8); URINE PROTEIN NEG (NEG); URINE SPECIFIC GRAVITY 1.017 (1.003-1.035)
== END 2017-02-28 09:30 | DRG 897 ==
LOC: P1E 19:17
PROVIDERS: Psychiatry & Neurology Psychiatry
PROC: HZ2ZZZZ Detoxification Services for Substance Abuse Treatment (ICD-10-PCS; principal; 2017-02-23)
DX: F11.23 Opioid dependence with withdrawal (principal); F31.32 Bipolar disorder, current episode depressed, moderate; I10 Essential (primary) hypertension; K04.7 Periapical abscess without sinus; T16.2XXA Foreign body in left ear, initial encounter; F13.239 Sedative, hypnotic or anxiolytic dependence with withdrawal, unspecified; J45.909 Unspecified asthma, uncomplicated; K21.9 Gastro-esophageal reflux disease without esophagitis; Z90.710 Acquired absence of both cervix and uterus
CPT/HCPCS: 80053; 80307; 81003; 84703; 85025; 86592

== ENCOUNTER 2017-03-21 16:33 | Inpatient (IN) | payer OTHER ==
[~2017-03-21] VITALS: Ht 162.6 cm; Wt 95.3 kg
--- NOTE | ~2017-03-21 | PA ---
Unit #: [id number] #: [id number] Patient: MARISELA SHARMA [id number] [facility] [address] [place] [address] [id number] I MR#: [id number] NAME: MARISELA SHARMA ROOM: P178 Age: 31 Sex: F Admission Date: 03/21/2017 : 1985 Date of Assessment: 03/22/2017 Attending Physician: Drew Roberts M.D. Admitting Physician: Drew Roberts M.D. Primary Care Physician: Prince Farfan M.D. PSYCHIATRIC ASSESSMENT DATE OF SERVICE 03/22/2017. IDENTIFYING DATA Ms. Soria is a 31-year-old single white female, who is a resident of [place], [place], and is known to me from previous encounter, was recently discharged from my care last month and brought herself back to the hospital on a voluntary basis. CHIEF COMPLAINT "I relapsed because other people were using in the program." HISTORY OF PRESENT ILLNESS Ms. Soria is a 31-year-old white female with history of substance abuse and mood disorder, who was self-referred to the hospital stating that she relapsed in a program after 2 weeks of clean time and "I relapsed because other people were using in the program and I've been drinking nonstop for the last 2 weeks as many drinks as possible 7 or 8 and I also using 8 mg of Suboxone off the street and reports history of complicated withdrawals including seizures and auditory hallucinations which are not command in nature as she stated that she hear whispers of voices and feels bugs crawling on her skin and had a COWS of 15 and CIWA of 22 indicating significant withdrawal from both alcohol and opioids. She does report depression, anxiety, irritability, feelings of hopelessness and helplessness, but denies any current suicidal ideations, intent, or plan. SUBSTANCE ABUSE HISTORY The patient reports history of alcohol and opioid abuse and dependence, currently alcohol has been her drug of choice. PAST PSYCHIATRIC HISTORY The patient has had history of [facility] and review of the medical records indicate that she has been diagnosed and treated for bipolar disorder and supposed to be on Geodon and Effexor, but has been noncompliant with medication and as such, has been decompensating. PAST MEDICAL HISTORY The patient's medical history is insignificant. ALLERGIES Haldol. Unit #: [id number] #: [id number] Patient: MARISELA SHARMA CURRENT MEDICATIONS Effexor and Geodon. PERSONAL AND SOCIAL HISTORY A 31-year-old white female, who reports that she is single, unemployed, and lives at home with her mother and has fairly decent social support system. MENTAL STATUS EXAMINATION Young white female who was casually dressed with fair personal hygiene, appears to be in no acute distress or discomfort. She was awake and alert on interaction with intact orientation to time, place, and person. Her mood was anxious and depressed with a congruent affect. Her speech was slow and restricted in content. Her thought processes were disorganized with some looseness of associations and flight of ideas. She denies any suicidal or homicidal ideations and also denies any auditory or visual hallucinations. Her insight and judgment remain significantly impaired. DIAGNOSTIC IMPRESSION Psychiatric: Alcohol dependence, moderate and acute withdrawals; opioid dependence, moderate; bipolar disorder, most recent episode depressed, recurrent, moderate, without psychotic features. Medical: None. Stressors: Moderate psychosocial stressors. TREATMENT PLAN 1. The patient has presented with a history of substance abuse and mood disorder, and has been decompensating. We will recommend inpatient hospitalization for detoxification, safety, and stabilization. We will start her on detox protocol. We will closely monitor for any worsening withdrawal symptoms. 2. Supportive therapy was provided to the patient. 3. Safe, structured, and nourishing environment will be provided. ESTIMATED LENGTH OF STAY 5 to 7 days. ABILITY TO HELP SELF Limited. WILLINGNESS TO HELP SELF The patient appears to be willing to help self. STRENGTHS 1. Communicative. 2. Cooperative. PROBLEMS 1. Chronic dysphoric symptoms. 2. Chronic chemical dependency. 3. Poor social support system. DISCHARGE CRITERIA This will be contingent upon the patient's ability to go through detox without having any significant withdrawal symptoms and her ability to stay safe to herself, particularly after discharge from the Program. Dictated by... Unit #: [id number] #: [id number] Patient: MARISELA SHARMA Mellisa Zarco/kayden TD: 03/22/2017 06:57 JOB #: [id number] PSYCHIATRIC ASSESSMENT Page 1 of 1 X Drew Roberts MD PSYCHIATRIC ASSESSMENT
--- NOTE | ~2017-03-21 | HP ---
Unit #: [id number] #: [id number] Patient: MARISELA SHARMA [id number] [place] [address] [id number] I MR#: [id number] NAME: MARISELA SHARMA ROOM: P171 Age: 31 Sex: F Admission Date: 03/21/2017 : 1985 Attending Physician: Drew Roberts M.D. Admitting Physician: Drew Roberts M.D. Primary Care Physician: Prince Farfan M.D. HISTORY AND PHYSICAL Marisela is a 31 year old admitted to [facility] because of her continued poly-illicit substance abuse. She was just discharged from this facility. Patient was seen and H and P dated 02/24/17 was reviewed. This is current. No changes. Please see H and P dated 02/24/17. Dictated by... Carmen Trammell P.A.-C. for Mellisa Joya/robb TD: 03/21/2017 21:25 JOB #: [id number] HISTORY AND PHYSICAL Page 1 of 1 X Carmen Trammell HISTORY AND PHYSICAL
--- NOTE | ~2017-03-21 | PN ---
Unit #: [id number] #: [id number] Patient: MARISELA GOMEZ [id number] [facility] [address] [place] [address] [id number] MR#: [id number] NAME: MARISELA GOMEZ ROOM: P178 Age: 31 Sex: F Admission Date: 03/21/2017 : 1985 Attending Physician: Drew Roberts M.D. Admitting Physician: Drew Roberts M.D. Primary Care Physician: Mellisa Riddle PROGRESS NOTES DATE 03/24/2017 DISCUSSION Ms. Gomez is a 31-year-old white female with substance abuse and mood disorder who was seen today and chart was reviewed and case was discussed with the staff. She has been anxious, withdrawn and rather seclusive to herself. Meanwhile, she has been cooperative with treatment recommendations and has been taking medications and tolerating them fairly well with no reported side effects. MENTAL STATUS EXAMINATION Young white female who was casually dressed with fair personal hygiene and appears to be in no acute distress or discomfort. She was awake and alert with impaired attention and concentration. Her mood was anxious with congruent affect. Her speech is slow and restricted in content. She denies any suicidal or homicidal ideations. Her insight and judgement remains slightly impaired. TREATMENT PLAN 1. Will continue on current medications and treatment protocol and will monitor her response to medications and make further adjustments as needed. 2. Will continue to follow up. Dictated by... Mellisa Zarco/robb TD: 03/24/2017 19:51 JOB #: [id number] Unit #: [id number] #: [id number] Patient: MARISELA GOMEZ PROGRESS NOTES Page 1 of 1 X Drew Roberts MD PROGRESS NOTE
--- NOTE | ~2017-03-21 | CO ---
Unit #: [id number] #: [id number] Patient: MARISELA SHARMA [id number] [place] [address] [id number] I MR#: [id number] NAME: MARISELA SHARMA ROOM: P178 Age: 31 Sex: F Admission Date: 03/21/2017 : 1985 Attending Physician: Drew Roberts M.D. Primary Care Physician: Prince Farfan M.D. Consultation Date: 03/22/2017 CONSULTATION REPORT LOUANN Villagran is a 31-year-old who complained of dysuria. Urinalysis on admission showed 1+ bacteria with 5 to 10 wbc's. She has had no recorded increased temperatures. ASSESSMENT Urinary tract infection. PLAN Bactrim DS one p.o. b.i.d. x7 days. Dictated by... Carmen Trammell P.A.-C. for Mellisa Joya/kayden TD: 03/26/2017 03:24 JOB #: [id number] CONSULTATION REPORT Page 1 of 1 X Carmen Trammell CONSULTATION REPORT
--- NOTE | ~2017-03-21 | CO ---
Unit #: [id number] #: [id number] Patient: MARISELA SHARMA [id number] [place] [address] [id number] MR#: [id number] NAME: MARISELA SHARMA ROOM: P178 Age: 31 Sex: F Admission Date: 03/21/2017 : 1985 Attending Physician: Drew Roberts M.D. Primary Care Physician: Prince Farfan M.D. Consultation Date: 03/23/2017 CONSULTATION REPORT SUBJECTIVE Sparkle has complained of right ear pain. We have been asked to assess and treat. OBJECTIVE GENERAL: Alert, well nourished, in no apparent distress. VITAL SIGNS: Blood pressure 120/70, heart rate 80, respirations 16, temperature 98.6. HEENT: Normocephalic. Right ear canal is red and swollen with small amounts of thick white debris. Throat is clear. NECK: Supple without lymphadenopathy. ASSESSMENT Right otitis externa. PLAN Ciprodex drops x7 days. Dictated by... Carmen Trammell PJensA.-C. for Mellisa Joya/kayden TD: 03/23/2017 22:09 JOB #: [id number] CONSULTATION REPORT Page 1 of 1 X Carmen Trammell CONSULTATION REPORT
--- NOTE | ~2017-03-21 | PN ---
Unit #: [id number] #: [id number] Patient: MARISELA GOMEZ [id number] [facility] [address] [place] [address] [id number] MR#: [id number] NAME: MARISELA GOMEZ ROOM: P178 Age: 31 Sex: F Admission Date: 03/21/2017 : 1985 Attending Physician: Drew Roberts M.D. Admitting Physician: Drew Roberts M.D. Primary Care Physician: Mellisa Riddle NOTES DATE OF SERVICE 03/23/2017 DISCUSSION Ms. Gomez is a 31-year-old white female who was seen today. Chart was reviewed and case was discussed with the staff. She has been anxious, withdrawn, and rather seclusive to herself. Meanwhile, she has been cooperative with treatment recommendations. She had a rough day yesterday with anxiety and confusional state (1) __ detox symptoms. However, she appears to be functioning somewhat better though she was in her bed and was seen to be somewhat disorganized, unkempt, disheveled, and unable to carry on meaningful conversation. MENTAL STATUS EXAMINATION Young white female who is casually dressed with marginal personal hygiene, appears to be in slight distress and discomfort. The patient was awake and alert with impaired attention and concentration. Her mood is anxious with congruent affect. She denies any suicidal or homicidal ideations. Her insight and judgment remain slightly impaired. TREATMENT PLAN 1. We will continue her on her current medications and treatment protocol. We will monitor her response to the medications and make further adjustments as needed. 2. We will continue to follow up. Dictated by... Mellisa Zarco/kiley TD: 03/23/2017 11:45 JOB #: [id number] Unit #: [id number] #: [id number] Patient: MARISELA GOMEZ PROGRESS NOTES Page 1 of 1 X Drew Roberts MD PROGRESS NOTE
[2017-03-23 17:59] LABS: BASOPHIL# 0.1 X10e3 (0-0.3); BASOPHIL% 0.7 % (0-2.5); EOSINOPHIL# 0.1 X10e3 (0-0.7); EOSINOPHIL% 1.2 % (0.0-7.0); HEMATOCRIT 40.6 % (35.0-45.0); HEMOGLOBIN 13.2 gm/dL (12.0-16.0); LYMPHOCYTE# 2.8 X10e3 (1.0-3.5); MEAN CELL VOLUME 89.1 FL (83-96); MEAN CORPUSCULAR HGB CONC 32.6 g/dL (30-36); MONOCYTE# 0.5 X10e3 (0-1.0); MONOCYTE% 6.4 % (3.0-12.0); NEUTROPHIL# 4.3 X10e3 (1.5-7.1); NEUTROPHIL% 55.7 % (40-75); PLATELET COUNT 226 X10e3 (140-420); RED BLOOD COUNT 4.55 X10e (3.90-5.30); RED CELL DISTRIBUTION WIDTH 15.4 % (11.0-15.5); WHITE BLOOD COUNT 7.7 X10e3 (4.0-10.5)
[2017-03-23 18:05] LABS: DIFF IND NO
[2017-03-23 18:26] LABS: ALBUMIN SERUM 3.6 g/dL (3.5-5.0); BILIRUBIN,TOTAL 0.5 mg/dL (0.2-2.0); BUN/CREATININE RATIO 11.25; CALCIUM SERUM 9.5 mg/dL (8.4-10.2); CREATININE SERUM 0.8 mg/dL (0.6-1.4); GLOM FILT RATE Estimated 99.7 mL/min (>60); POTASSIUM 4.3 mmol/L (3.5-5.1); PROTEIN TOTAL SERUM 6.7 g/dL (6.0-8.3)
[2017-03-24 09:54] LABS: URINE APPEARANCE CLEAR; URINE BILIRUBIN NEG (NEG); URINE BLOOD NEG (NEG); URINE COLOR DK YELLOW; URINE GLUCOSE NEG (NEG); URINE KETONE NEG (NEG); URINE LEUKOCYTE ESTERASE NEG (NEG); URINE NITRATE NEG (NEG); URINE PH 6.5 (5-8); URINE PROTEIN NEG (NEG); URINE SPECIFIC GRAVITY 1.013 (1.003-1.035)
[2017-03-24 10:22] LABS: AMPHETAMINE NEG (NEG); BARBITURATES NEG (NEG); BENZODIAZEPINES POS (NEG); COCAINE NEG (NEG); MARIJUANA NEG (NEG); OPIATES NEG (NEG); TRICYCLIC ANTIDEPRESSANTS NEG (NEG); U METHADONE NEG (NEG)
== END 2017-03-24 10:50 | DRG 897 ==
LOC: P1E 18:23
PROVIDERS: Psychiatry & Neurology Psychiatry
PROC: HZ2ZZZZ Detoxification Services for Substance Abuse Treatment (ICD-10-PCS; principal; 2017-03-21)
DX: F10.239 Alcohol dependence with withdrawal, unspecified (principal); F11.20 Opioid dependence, uncomplicated; N39.0 Urinary tract infection, site not specified; F31.32 Bipolar disorder, current episode depressed, moderate; H60.91 Unspecified otitis externa, right ear
CPT/HCPCS: 80053; 80307; 81003; 85025; 86592